=== PATIENT | female | born 1950 ===

== ENCOUNTER → 2016-09-04 | Outpatient (CLI) | payer OTHER, MEDICARE | LOC: LFPA 15:25 | DX: M85.80 Other specified disorders of bone density and structure, unspecified site (principal) ==

== ENCOUNTER → 2016-11-06 | Outpatient (CLI) | payer OTHER, MEDICARE | LOC: LFPA 14:25 | DX: L08.9 Local infection of the skin and subcutaneous tissue, unspecified (principal) ==